=== PATIENT | female | born 2000 | race African-American/Black ===

== ENCOUNTER 2023-06-09 14:45 | Inpatient (IN) | payer MEDICAID, OTHER ==
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
[2023-06-09 15:52] LABS: Basophils % (A) 1 %; Eosinophils % (A) 1 %; HCT 43.5 % (34.0-46.0); HGB 14.7 gm/dL (11.4-16.0); Lymphocytes # (A) 1.2 k/uL (1.0-4.8); Lymphocytes % (A) 36 %; MCH 31.2 pg (25.0-35.0); MCHC 33.7 g/dL (31.0-37.0); MCV 92.6 fL (80.0-100.0); Mean Platelet Volume 8.7; Monocytes # (A) 0.2 k/uL (0-1.0); Monocytes % (A) 5 %; Neutrophils # (A) 1.9 k/uL (1.3-7.7); Neutrophils % (A) 56 %; Platelet Count 145 k/uL (150-450); RDW 12.4 % (11.5-15.5); WBC 3.4 k/uL (3.8-10.6)
[2023-06-09 16:04] LABS: ALT 13 U/L (4-34); AST 18 U/L (14-36); African American GFR (CKD) >90 (>60 ml/min/1.73 sqM); Albumin 4.3 g/dL (3.5-5.0); Alkaline Phosphatase 49 U/L (38-126); Anion Gap 9 mmol/L; Blood Urea Nitrogen 9 mg/dL (7-17); Calcium 9.4 mg/dL (8.4-10.2); Carbon Dioxide 22 mmol/L (22-30); Chloride 109 mmol/L (98-107); Creatine Kinase 89 U/L (30-135); Glucose 111 mg/dL (74-99); Magnesium 1.9 mg/dL (1.6-2.3); Non-African American GFR(CKD) >90 (>60 ml/min/1.73 sqM); Potassium 3.9 mmol/L (3.5-5.1); Sodium 140 mmol/L (137-145); Total Bilirubin 0.5 mg/dL (0.2-1.3); Total Protein 7.8 g/dL (6.3-8.2)
[2023-06-09 17:36] LABS: Appearance,Urine Cloudy (Clear); Bacteria,Urine Rare /hpf; Bilirubin,Urine Negative (Negative); Blood,Urine Large (Negative); Color,Urine Yellow; Glucose,Urine (UA) Negative (Negative); Ketones,Urine Negative (Negative); Leukocyte Esterase,Urine Moderate (Negative); Mucus,Urine Moderate /hpf; Nitrite,Urine Negative (Negative); PH, Urine 5.5 (5.0-8.0); Protein,Urine 1+ (Negative); RBC,Urine 7 /hpf (0-5); Specific Gravity,Urine 1.033 (1.001-1.035); Squamous Epithelial Cell,Urine 21 /hpf (0-4); WBC,Urine 24 /hpf (0-5)
[2023-06-09 17:37] LABS: Amphetamine Screen,Urine Not Detected (NotDetected); Barbiturate Screen,Urine Not Detected (NotDetected); Benzodiazepines Screen,Urine Not Detected (NotDetected); Cocaine Screen,Urine Not Detected (NotDetected); Methadone Screen, Urine Not Detected (NotDetected); Opiate Screen,Urine Not Detected (NotDetected); Oxycodone Screen, Urine Not Detected (NotDetected); Phencyclidine Screen,Urine Not Detected (NotDetected); Tricyclic Antidepressant,Urine Not Detected (NotDetected); Urn Cannabinoid Scrn Not Detected (NotDetected)
[2023-06-09] MEDS: ACETAMINOPHEN TAB 325 MG TAB PO STA (20:09)
[2023-06-10] MEDS ORDERED: OLANZapine 10 MG VIAL IM PRN (14:23)
[2023-06-10] MEDS ORDERED: OLANZapine 5 MG TAB PO PRN (14:23)
[2023-06-10] MEDS ORDERED: IBUPROFEN 600 MG TAB PO PRN (14:23)
[2023-06-10] MEDS ORDERED: MAG HYDROX/AL HYDROX/SIMETH 30 ML CUP PO PRN (14:23)
[2023-06-10] MEDS ORDERED: LORazepam 2 MG/ML INJ IM PRN (14:23)
[2023-06-10] MEDS ORDERED: MAGNESIUM HYDROXIDE 2,400 MG/30 ML CUP PO PRN (14:23)
[2023-06-10] MEDS: BENZTROPINE MESYLATE 0.5 MG TAB PO SCH (17:18)
[2023-06-10] MEDS: DULoxetine HCL 30 MG CAPSULE.DR PO SCH (17:18)
[2023-06-10] MEDS: DIVALPROEX 500 MG TABLET.DR PO SCH (17:18)
[2023-06-10] MEDS: ACETAMINOPHEN TAB 325 MG TAB PO PRN (18:05)
[2023-06-10 19:06] LABS: Appearance,Urine Cloudy (Clear); Bacteria,Urine Occasional /hpf; Bilirubin,Urine Negative (Negative); Blood,Urine Large (Negative); Color,Urine Yellow; Glucose,Urine (UA) Negative (Negative); Ketones,Urine Negative (Negative); Leukocyte Esterase,Urine Small (Negative); Mucus,Urine Rare /hpf; Nitrite,Urine Negative (Negative); Protein,Urine Trace (Negative); RBC,Urine 10 /hpf (0-5); Specific Gravity,Urine 1.019 (1.001-1.035); Squamous Epithelial Cell,Urine 8 /hpf (0-4); WBC,Urine 11 /hpf (0-5)
[2023-06-10] MEDS: levETIRAcetam 500 MG TAB PO SCH (21:15)
[2023-06-10] MEDS: QUEtiapine 50 MG TAB PO SCH (21:15)
[2023-06-11 12:13] LABS: Chol/HDL Ratio 3.76 Ratio; LDL Cholesterol,Calculated 96.4 mg/dL (0.0-131.0)
[2023-06-11] MEDS: BENZTROPINE MESYLATE 1 MG TAB PO SCH (12:36)
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
[2023-06-11] MEDS: DIVALPROEX ER 250 MG TAB.ER.24H PO SCH (20:49)
[2023-06-11] MEDS: traZODone HCL 100 MG TAB PO SCH (20:49)
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
[2023-06-12] MEDS: LORazepam 1 MG TAB PO PRN (01:08)
[2023-06-12 07:30] LABS: HCT 37.8 % (34.0-46.0); HGB 12.9 gm/dL (11.4-16.0); MCH 31.7 pg (25.0-35.0); MCV 93.2 fL (80.0-100.0); Mean Platelet Volume 8.7; Platelet Count 148 k/uL (150-450); RBC 4.05 m/uL (3.80-5.40); RDW 12.6 % (11.5-15.5); WBC 4.4 k/uL (3.8-10.6)
[2023-06-12] MEDS ORDERED: traZODone HCL 50 MG TAB PO PRN (11:25)
--- NOTE | 2023-06-12 11:25 | P.PN ---
Progress Note - Text Progress Note Date: 06/12/23 Interval History: Patient was seen today laying in bed, she was difficult to awaken today to speak with check writer. States that she had a difficult time initiating sleep last night. States that she is still having "side effects" mainly stiffness. She states that it is "a bit better" compared to yesterday. States that she is doing "fine" claims that her anxiety and mood have been mildly improving since yesterday. She remains fairly isolative mainly staying in her room. Claims of a fair appetite. At this time patient denies any suicidal or homical ideations, intent or plan. Patient denies any auditory, visual hallucinations and denies any paranoia or delusions. Patient has been compliant with her medications. MENTAL STATUS EXAM: General Appearance: Patient appears to be stated age is alert, directable, and attempts to cooperate. Patient appears to have fair hygiene and grooming. Tattooed, wearing a bonnet and hospital gown. Behavior: Patient is seated without any agitated behavior. Guarded Speech: Patient's speech is fluent and nonpressured. Slow, hesitant, monotone. [place] Mood/Affect: Patient reports their mood is mildly improving, affect is congruent and constricted. Suicidality/Homicidality: Patient denies having any homicidal ideation intent or plan. Denies any suicidal ideations intent or plan Perceptions: Patient states she sees people, and is hearing voices. Though content/process: There is no evidence of any delusional thought content and thought process is [place]. Memory and concentration: AOX3, grossly intact for the purposes of this session. Judgment and insight: poor IMPRESSIONS: schizophrenia adverse reaction to medications PTSD PLAN: -Patient is admitted under voluntary status to MHU for stabilization of psychiatric symptoms and safety. Patient has signed adult voluntary form and medication consent and is placed in patient's chart. -Medications : Cogentin 1mg bid for EPS, Depakote ER 750mg qhs for mood stabilization, change to Cymbalta 60mg QHS for depression/anxiety, decrease Prolixin 8 mg bid for psychosis, Continue with Keppra 500mg bid for seizures, change Trazadone 50 mg qhs for sleep. restart serquel 100 mg qhs for sleep/psychosis. -Ativan and Haldol PRN for agitation/aggression -NRT - nicotine patch -SW on board for discharge planning. Encourage patient to participate in groups to work on coping skills.
[2023-06-12] MEDS: QUEtiapine 100 MG TAB PO SCH (20:52)
[2023-06-12] MEDS: DULoxetine HCL 60 MG CAPSULE.DR PO SCH (20:52)
--- NOTE | 2023-06-13 11:51 | P.PN ---
Progress Note - Text Progress Note Date: 06/13/23 Interval History: Patient was seen today laying in bed, she was difficult to awaken today to speak with securities underwriter. She claims that the side effects have decreased including the drooling mainly. States that she does still feel some stiffness. She claims that her mood has been mildly improving along with her anxiety. Continues to endorse some depression. She has been mainly isolating in her room. Claims that she found it difficult to initiate sleep last night. She has been taking Ativan as needed for anxiety. Claims of a fair appetite. Does not been going to groups. Up for meals. At this time patient denies any suicidal or homicidal ideations, intent or plan. Patient denies any visual hallucinations and denies any paranoia or delusions. She is claiming that she is still experiencing auditory hallucinations however they are less distressing for her today. Patient has been compliant with her medications. MENTAL STATUS EXAM: General Appearance: Patient appears to be stated age is alert, directable, and attempts to cooperate. Patient appears to have fair hygiene and grooming. Tattooed, wearing a bonnet and hospital gown. Behavior: Patient is seated without any agitated behavior. Guarded, improving mildly Speech: Patient's speech is fluent and nonpressured. Slow, hesitant, monotone. [place] Mood/Affect: Patient reports their mood is mildly improving, affect is congruent and constricted. Suicidality/Homicidality: Patient denies having any homicidal ideation intent or plan. Denies any suicidal ideations intent or plan Perceptions: Patient states she is still hearing voices, mildly improving. Though content/process: There is no evidence of any delusional thought content and thought process is [place]. Memory and concentration: AOX3, grossly intact for the purposes of this session. Judgment and insight: poor, improving mildly IMPRESSIONS: schizophrenia adverse reaction to medications PTSD PLAN: -Patient is admitted under voluntary status to MHU for stabilization of psychiatric symptoms and safety. Patient has signed adult voluntary form and medication consent and is placed in patient's chart. -Medications : Cogentin 1mg bid for EPS, Depakote ER 750mg qhs for mood stabilization, increase Cymbalta 60mg QHS + 30 mg daily for depression/anxiety, Prolixin 8 mg bid for psychosis, Continue with Keppra 500mg bid for seizures, Trazadone 50 mg qhs for sleep. increase seroquel 150 mg qhs for sleep/psychosis. -Ativan and Haldol PRN for agitation/aggression -NRT - nicotine patch -SW on board for discharge planning. Encourage patient to participate in groups to work on coping skills. patient will be discharged back to [facility] once she improves psychiatrically.
[2023-06-13] MEDS: QUEtiapine 50 MG TAB PO SCH (20:13)
[2023-06-13] MEDS: DULoxetine HCL 60 MG CAPSULE.DR PO SCH (20:14)
[2023-06-14] MEDS: DULoxetine HCL 30 MG CAPSULE.DR PO SCH (13:48)
--- NOTE | 2023-06-14 22:52 | P.PN ---
Progress Note - Text Progress Note Date: 06/14/23 Interval History: Interval History: The patient was seen today as coverage for Dr. Huizar. Their chart was reviewed, and the case was discussed with the nursing staff. The patient reports better sleep and appetite. The patient has not been participating in groups and other unit activities. The patient has been taking their psychiatric medications and denies side effects including drooling. The patient reports feeling improvement of her mood and minimized depression. No reports of suicidal or homicidal ideation and no delusions could be elicited. The patient reports no auditory or visual hallucinations. No anger or outburst of rage. The patient is less isolating and she was watching TV outside her room. Pt minimizes anxiety symptoms today. MENTAL STATUS EXAM: General Appearance: Patient appears to be stated age is alert, fair hygiene and grooming. Behavior: Patient is cooperative, seated without any agitated behavior. Guarded Speech: Patient's speech is fluent and non pressured. Slow, delaed, hesitant, monotone. Mood/Affect: Patient reports their mood is"better ", affect is congruent and constricted. Suicidal/Homicidal risk: Patient denies having any homicidal ideation intent or plan. Denies any suicidal ideation intent or plan Perceptions: Patient reports no auditory or visual hallucinations Though content/process: There is no evidence of any delusional thought content and thought process is [place]. Memory and concentration: AOX3, grossly intact for the purposes of this session. Judgment and insight: poor IMPRESSIONS: Schizophrenia PTSD PLAN: The patient is admitted under voluntary status to MHU for stabilization of psychiatric symptoms and safety. Patient has signed adult voluntary form and medication consent and is placed in patient's chart. Continue inpatient psychiatric hospitalization. Implement the following precautions as recommended by the admitting psychiatrist: suicide and elopement Consult the medical team immediately if any medical concerns arise. Educate the patient on the benefits of participating in groups and other unit activities and encourage active participation. Medications: Continue Depakote ER 750mg qhs for mood stabilization Continue Cymbalta 60mg QHS + 30 mg daily for depression/anxiety Continue Prolixin 8 mg bid for psychosis Continue with Keppra 500mg bid for seizures Continue Trazadone 50 mg qhs for sleep. Continue Seroquel 150 mg qhs for sleep/psychosis. Continue Cogentin 1mg bid for EPS NRT - nicotine patch Continue PRN psychiatric Medications including Ativan and Haldol PRN for agitation/aggression Discharge planning is currently in progress.
[2023-06-16 09:43] VITALS: TEMP 97.9
--- NOTE | 2023-06-16 11:40 | P.PN ---
Progress Note - Text Progress Note Date: 06/16/23 Interval History: Patient was seen today laying in bed, she was somewhat difficult to awaken to speak with signwriter. She claims that the side effects have decreased, and that she is doing pretty good today. Patient presents with clearer speech compared to previous days. She claims that her mood has been mildly improving along with her anxiety. She has been isolating in her room. Claims of a fair appetite. Does not been going to groups. She is up for meals. Spoke with patient about receiving a SALMON prior to D/C, to help with compliance and side effects of the pill form of the medications. Patient agreeable. At this time patient denies any suicidal or homicidal ideations, intent or plan. Patient denies any visual hallucinations and denies any paranoia or delusions. She is claiming that she is still no longer experiencing auditory hallucinations, and not endorsing SI/HI. Patient has been compliant with her medications. MENTAL STATUS EXAM: General Appearance: Patient appears to be stated age is alert, directable, and attempts to cooperate. Patient appears to have fair hygiene and grooming. Tattooed, wearing a bonnet and hospital gown. Behavior: Patient is laying in bed without any agitated behavior. improving Speech: Patient's speech is fluent and nonpressured. [place], mildly improving Mood/Affect: Patient reports their mood is improving, affect is congruent and constricted. Suicidality/Homicidality: Patient denies having any homicidal ideation intent or plan. Denies any suicidal ideations intent or plan Perceptions: Patient states she is no longer hearing voices Though content/process: There is no evidence of any delusional thought content and thought process is [place]. Memory and concentration: AOX3, grossly intact for the purposes of this session. Judgment and insight: poor, improving IMPRESSIONS: schizophrenia adverse reaction to medications PTSD PLAN: -Patient is admitted under voluntary status to MHU for stabilization of psychiatric symptoms and safety. Patient has signed adult voluntary form and medication consent and is placed in patient's chart. -Medications : Cogentin 1 mg bid for EPS, Depakote ER 750mg qhs for mood stabilization, increase Cymbalta 60mg bid for depression/anxiety, continue Prolixin 7.5 mg bid for psychosis, patient was agreeable to receive Prolixin D 37.5 mg today to ensure compliance, next dose will be due in q. 14 days on 06/29, Continue with Keppra 500mg bid for seizures, Trazadone 50 mg qhs for sleep. ser oquel 150 mg qhs for sleep/psychosis. -Ativan and Haldol PRN for agitation/aggression -NRT - nicotine patch -SW on board for discharge planning. Encourage patient to participate in groups to work on coping skills. patient will be discharged back [facility] vs if she continues to improve and patient is transitioned onto long-acting injection.
--- NOTE | 2023-06-16 11:44 | P.PN ---
Progress Note - Text Progress Note Date: 06/15/23 Interval History: The patient was seen today as coverage for Dr. Huizar. Their chart was reviewed, and the case was discussed with the nursing staff. The patient was evaluated in her room and the presence of a female staff. The patient was superficial and limited in discussing her in terms. She reported had a plus tonight but she was lying in bed to have some rest. She denies suicidal or homicidal ideation. The patient denies hallucinations, paranoid ideation, delusions, or manic symptoms. The patient reported taking her psychiatric medications and confirmed with no side effects. The patient reported feeling more motivated and less depressed. MENTAL STATUS EXAM: General Appearance: Patient appears to be stated age is alert, fair hygiene and grooming. Behavior: Patient is cooperative, seated without any agitated behavior. Guarded Speech: Patient's speech is fluent and non pressured. Slow, delaed, hesitant, monotone. Mood/Affect: Patient reports their mood is" feeling better ", affect is congruent and constricted. Suicidal/Homicidal risk: Patient denies having any homicidal ideation intent or plan. Denies any suicidal ideation intent or plan Perceptions: Patient reports no auditory or visual hallucinations Though content/process: There is no evidence of any delusional thought content and thought process is [place]. Memory and concentration: AOX3, grossly intact for the purposes of this session. Judgment and insight: Limited IMPRESSIONS: Schizophrenia PTSD PLAN: The patient is admitted under voluntary status to MHU for stabilization of psychiatric symptoms and safety. Patient has signed adult voluntary form and medication consent and is placed in patient's chart. Continue inpatient psychiatric hospitalization. Implement the following precautions as recommended by the admitting psychiatrist: suicide and elopement Consult the medical team immediately if any medical concerns arise. Educate the patient on the benefits of participating in groups and other unit activities and encourage active participation. Medications: Continue Depakote ER 750mg qhs for mood stabilization Continue Cymbalta 60mg QHS + 30 mg daily for depression/anxiety Continue Prolixin 7.5 mg bid for psychosis (The dosage has been adjusted from 8 mg to 7.5 mg due to the lack of a pill dose available at the pharmacy to accommodate the 8 mg dosage. The closest available dose is 5 mg.) Continue with Keppra 500mg bid for seizures Continue Trazadone 50 mg qhs for sleep. Continue Seroquel 150 mg qhs for sleep/psychosis. Continue Cogentin 1mg bid for EPS NRT - nicotine patch Continue PRN psychiatric Medications including Ativan and Haldol PRN for agitation/aggression Discharge planning is currently in progress.
[2023-06-16] MEDS: fluPHENAZine DECANOATE 25 MG/ML 5ML MDV IM SCH (11:55)
[2023-06-17] MEDS: DULoxetine HCL 60 MG CAPSULE.DR PO SCH (08:46)
--- NOTE | 2023-06-17 11:57 | P.PN ---
Progress Note - Text Progress Note Date: 06/17/23 Interval History: Patient was seen today laying in bed, she was easier to awaken today to speak with lyric writer. She claims that the side effects are gone, and that she is doing good today. Patient presents with clearer speech compared to previous days. She claims that her mood is improving along with her anxiety. She has been isolating in her room. Claims of a fair appetite. Does not been going to groups. She is up for meals. Patient is not caring for her hygiene, and is malodorous. Patient received SALMON yesterday, will receive her next injection in 14 days. Patient experiencing no problems with injection, or injection site. At this time patient denies any suicidal or homicidal ideations, intent or plan. Patient denies any visual hallucinations and denies any paranoia or delusions. She is claiming that she is still no longer experiencing auditory hallucinations, and not endorsing SI/HI. Patient has been compliant with her medications. MENTAL STATUS EXAM: General Appearance: Patient appears to be stated age is alert, directable, and attempts to cooperate. Patient appears to have fair hygiene and grooming. Tattooed, wearing a bonnet and hospital gown. Behavior: Patient is laying in bed without any agitated behavior. improving Speech: Patient's speech is fluent and nonpressured. [place], mildly improving Mood/Affect: Patient reports their mood is improving, affect is congruent and constricted. improving Suicidality/Homicidality: Patient denies having any homicidal ideation intent or plan. Denies any suicidal ideations intent or plan Perceptions: Patient states she is no longer hearing voices Though content/process: There is no evidence of any delusional thought content and thought process is [place]. improving Memory and concentration: AOX3, grossly intact for the purposes of this session. Judgment and insight: poor, improving IMPRESSIONS: Schizophrenia Adverse reaction to medications PTSD PLAN: -Patient is admitted under voluntary status to MHU for stabilization of psychiatric symptoms and safety. Patient has signed adult voluntary form and [facility], located [facility] consent and is placed in patient's chart. -Medications : Cogentin 1 mg bid for EPS, Depakote ER 750mg qhs for mood stabilization, Cymbalta 60mg bid for depression/anxiety, decrease Prolixin PO 5 mg bid for psychosis for two days then d/c, received Prolixin D 37.5 mg 06/16 , next dose will be due in q. 14 days on 06/29, Continue with Keppra 500mg bid for seizures, Trazadone 50 mg qhs for sleep. seroquel 150 mg qhs for sleep/psychosis. -Ativan and Haldol PRN for agitation/aggression -NRT - nicotine patch -SW on board for discharge planning. Encourage patient to participate in groups to work on coping skills. patient will be discharged back to [facility] if she continues to improve
--- NOTE | 2023-06-18 11:13 | P.PN ---
Subjective Progress Note Date: 06/18/23 Principal diagnosis: IMPRESSIONS: Schizophrenia Adverse reaction to medications PTSD Patient Name: Ching Neri Date of : 89 Patient Status: Inpatient Attending Provider: Ken Huizar Date: 06/18/23 Subjective data: The patient was seen in her room where she was laying comfortably in bed Patient was awake and was able to interact She states that she is feeling a lot better since she came in She says that she came in because she needed her medications to be adjusted She stated that she was shaking and drooling and that the medicines were making her more miserable she said that she is doing much better now she said that she currently lives alone She says that she is not having any problems with drugs or alcohol Does not been going to groups. She is up for meals. Patient is not caring for h er hygiene, and is malodorous.Patient denies any visual hallucinations and denies any paranoia or delusions. She is claiming that she is still no longer experiencing auditory hallucinations, and not endorsing SI/HI. Patient has been compliant with her medications. MENTAL STATUS EXAM: General Appearance: Patient appears to be stated age is alert, directable, and attempts to cooperate. Behavior: Patient is laying in bed without any agitated behavior. improving Speech: Patient's speech is fluent and nonpressured. [place], Mood/Affect: Patient reports their mood is improving, affect is congruent and constricted. i Suicidality/Homicidality: Patient denies having any homicidal ideation intent or plan. Denies any suicidal ideations intent or plan Perceptions: Patient states she is no longer hearing voices Though content/process: There is no evidence of any delusional thought content and thought process is [place]. improving Memory and concentration: AOX3, grossly intact for the purposes of this session. Judgment and insight: poor, improving IMPRESSIONS: Schizophrenia Adverse reaction to medications PTSD PLAN: -Patient is admitted under voluntary status to [facility] for stabilization of psychiatric symptoms and safety. Patient has signed adult voluntary form and medication consent and is placed in patient's chart. -Medications : Cogentin 1 mg bid for EPS, Depakote ER 750mg qhs for mood stabilization, Cymbalta 60mg bid for depression/anxiety, Prolixin PO 5 mg bid for psychosis for two days then d/c, received Prolixin D 37.5 mg 06/16 , next dose will be due in q. 14 days on 06/29, Continue with Keppra 500mg bid for seizures, Trazadone 50 mg qhs for sleep. seroquel 150 mg qhs for sleep/psychosis. -Ativan and Haldol PRN for agitation/aggression -NRT - nicotine patch - on board for discharge planning. Encourage patient to participate in groups to work on coping skills. patient will be discharged back to [facility] if she continues to improve Kimberly participated on the taylor activities and continue supportive care Mark Attila Sauer Objective - Vital Signs Vital signs: Vital Signs Temp 97.9 F 06/16/23 09:20 Pulse 125 H 06/16/23 09:20 Resp 16 06/16/23 09:20 BP 116/63 06/16/23 09:20 Pulse Ox 100 06/16/23 09:20 FiO2 - Labs CBC & Chem 7: 06/12/23 07:05 06/09/23 15:40
--- NOTE | 2023-06-19 12:05 | P.DS ---
Providers Date of admission: 06/10/23 14:13 Attending physician: Ken Huizar MD Consults: 06/10/23 14:23 Consult Physician Routine Consulting Provider: Donny Physician Consult Reason/Comments: H&P and medical Do you want consulting provider notified?: Yes Primary care physician: Stated None - Discharge Diagnosis(es) (1) Schizophrenia, acute Current Visit: Yes Status: Chronic Priority: Low Hospital Course: The patient was hospitalized for further evaluation and treatment Patient is a 4 to the admission note for further details Patient responded favorably to the current management rare at the time of discharge patient was not suicidal or homicidal she did not exhibit any side ef fects on her current medications She at this time has plans [facility] management and supportive care Patient is also advised to follow-up with her psychiatrist and her PCP ENTAL STATUS EXAM: General Appearance: Patient appears to be stated age is alert, directable, and attempts to cooperate. Behavior: Patient is laying in bed without any agitated behavior. improving Speech: Patient's speech is fluent and nonpressured. [place], Mood/Affect: Patient reports their mood is improving, affect is congruent and constricted. i Suicidality/Homicidality: Patient denies having any homicidal ideation intent or plan. Denies any suicidal ideations intent or plan Perceptions: Patient states she is no longer hearing voices Though content/process: There is no evidence of any delusional thought content and thought process is [place]. improving Memory and concentration: AOX3, grossly intact for the purposes of this session. Judgment and insight: poor, improving IMPRESSIONS: Schizophrenia Adverse reaction to medications PTSD PLAN: -Patient is admitted under voluntary status to [facility] for stabilization of psychiatric symptoms and safety. Patient has signed adult voluntary form and medication consent and is placed in patient's chart. -Medications : Cogentin 1 mg bid for EPS, Depakote ER 750mg qhs for mood stabilization, Cymbalta 60mg bid for depression/anxiety, Prolixin PO 5 mg bid for psychosis for two days then d/c, received Prolixin D 37.5 mg 06/16 , next dose will be due in q. 14 days on 06/29, Continue with Keppra 500mg bid for seizures, Trazadone 50 mg qhs for sleep. seroquel 150 mg qhs for sleep/psychosis. -Ativan and Haldol PRN for agitation/aggression -NRT - nicotine patch - on board for discharge planning. Encourage patient to participate in groups to work on coping skills. Kimberly participated on the taylor activities and continue supportive care Will discharge home today with outpatient follow-up as directed Mark Aiken M.D. Patient Condition at Discharge: Good Plan - Discharge Summary Discharge Rx Participant: No New Discharge Prescriptions: No Action fluPHENAZine HCl 10 mg PO BID@0900,1700 QUEtiapine [SEROquel] 50 mg PO HS@2100 LORazepam [Ativan] 0.5 mg PO BID@0900,1700 Benztropine Mesylate [Cogentin] 0.5 mg PO BID@0900,1700 levETIRAcetam [Keppra] 500 mg PO BID Divalproex Sodium [Depakote] 500 mg PO BID@0900,1700 DULoxetine HCL [Cymbalta] 30 mg PO BID@0900,1700 Discharge Medication List Benztropine Mesylate [Cogentin] 0.5 mg PO BID@0900,1700 06/09/23 [History] DULoxetine HCL [Cymbalta] 30 mg PO BID@0900,1700 06/09/23 [History] Divalproex Sodium [Depakote] 500 mg PO BID@0900,1700 06/09/23 [History] LORazepam [Ativan] 0.5 mg PO BID@0900,1700 06/09/23 [History] QUEtiapine [SEROquel] 50 mg PO HS@2100 06/09/23 [History] fluPHENAZine HCl 10 mg PO BID@0900,1700 06/09/23 [History] levETIRAcetam [Keppra] 500 mg PO BID 06/09/23 [History] Follow up Appointment(s)/Referral(s): [facility] [Outside] - 06/24/23 9:30 am (with Elisabeth) [facility] [NON-STAFF] - 1 Week Patient Instructions/Handouts: Schizophrenia (DC), Post Traumatic Stress Disorder (DC) Activity/Diet/Wound Care/Special Instructions: Avoid the use of street drugs and alcohol. Take all medications as prescribed. When you are in need of refills on your medications, please contact your medical provider and/or outpatient psychiatrist/provider to have this done. Please go to your scheduled outpatient appointment for aftercare treatment. If symptoms return or become worse, call the crisis line at and/or go to the nearest emergency room for evaluation. National Suicide Hotline 987.
[2023-06-19 13:15] VITALS: BP 102/60; PULSE 75; RESP 20
== END 2023-06-19 14:41 | disposition home or self-care (01) | DRG 750 ==
LOC: EC 14:45 → 3MHU 06-10 14:13
PROVIDERS: ADMIT Psychiatry & Neurology Psychiatry; ATTEND Psychiatry & Neurology Psychiatry
DX: F20.9 Schizophrenia, unspecified (principal); F43.10 Post-traumatic stress disorder, unspecified; G40.909 Epilepsy, unspecified, not intractable, without status epilepticus; R45.1 Restlessness and agitation; F17.200 Nicotine dependence, unspecified, uncomplicated; R45.851 Suicidal ideations; T50.905A Adverse effect of unspecified drugs, medicaments and biological substances, initial encounter; M79.10 Myalgia, unspecified site; E66.9 Obesity, unspecified; J45.909 Unspecified asthma, uncomplicated; Z59.01 Sheltered homelessness; Z79.899 Other long term (current) drug therapy; Z81.8 Family history of other mental and behavioral disorders; Z56.0 Unemployment, unspecified; Z11.52 Encounter for screening for COVID-19; Z68.32 Body mass index [BMI] 32.0-32.9, adult; Z91.012 Allergy to eggs; Z91.010 Allergy to peanuts; Z81.3 Family history of other psychoactive substance abuse and dependence; Z62.813 Personal history of forced labor or sexual exploitation in childhood; Z28.21 Immunization not carried out because of patient refusal
CPT/HCPCS: 36415; 80053; 80061; 80306; 81001; 81025; 82075; 82550; 83036; 83735; 84443; 85025; 85027; 87636; 93005; 99285